=== PATIENT | male | born 1965 | race African-American/Black ===

== ENCOUNTER 2018-07-20 20:43 | Emergency (ER) | payer OTHER ==
[~2018-07-20] VITALS: Ht 167.6 cm; Wt 81.7 kg
[2018-07-20] MEDS ORDERED: HYDROCHLOROTH12.5 M1 PO (20:53)
[2018-07-20] MEDS ORDERED: LIPITOR80 MG PO (20:53)
[2018-07-20] MEDS ORDERED: NORCO 5-325 TA1 EACH PO (21:31)
[2018-07-20] MEDS ORDERED: CIPROFLOXIN HC2.5 M1 OPHTHALMIC (21:31)
[2018-07-20 21:45] VITALS: BP 144/88
== END 2018-07-20 21:45 | disposition home or self-care (01) ==
LOC: M.ERS 20:43
DX: Z77.098 Contact with and (suspected) exposure to other hazardous, chiefly nonmedicinal, chemicals (principal); H53.141 Visual discomfort, right eye; I10 Essential (primary) hypertension; E78.00 Pure hypercholesterolemia, unspecified